=== PATIENT | male | born 1965 | race Caucasian/White ===

== ENCOUNTER 2018-04-14 05:21 | Emergency (ER) | payer SELFPAY ==
[~2018-04-14] VITALS: Ht 180.3 cm; Wt 95.3 kg
[2018-04-14 05:53] LABS: BASO % 0 % (0-3); EOS % 0 % (0-3); HEMATOCRIT 44.8 % (39.0-53.0); HEMOGLOBIN 14.6 g/dL (13.0-17.5); LYMPH # 1.2 x10^3/uL (1.0-4.8); LYMPH % 13 % (24-48); MEAN CORPUSCULAR HEMOGLOBIN 28 pg (25-35); MEAN CORPUSCULAR HGB CONC 33 g/dL (31-37); MEAN CORPUSCULAR VOLUME 87 fL (79-100); MONO # 0.5 x10^3/uL (0.0-1.1); MONO % 6 % (0-9); NEUT # 7.6 x10^3uL (1.8-7.7); NEUT % 81 % (31-73); PLATELET COUNT 314 x10^3/uL (140-400); RED BLOOD COUNT 5.13 x10^6/uL (4.30-5.70); RED CELL DISTRIBUTION WIDTH 14.3 % (11.5-14.5); WHITE BLOOD COUNT 9.4 x10^3/uL (4.0-11.0)
[2018-04-14] MEDS ORDERED: HYDROmorphone 2 MG/ML VIAL ONE (05:53)
--- NOTE | 2018-04-14 05:55 | PHYS DOC ---
Adult General Chief Complaint Chief Complaint: HEADACHE HPI HPI Patient is a 53-year-old male who presents with complaint of 2-3 day history of severe headache that he rates a 10 out of 10. Patient states that this is the worst headache of his life. He denies any history of migraines. He does indicate that he has a family history of migraines. He denies family history of aneurysms. He describes the pain as being throbbing in nature and complains of photophobia. He also was had nausea and vomiting. Patient states that pain is worsened with walking and change of position. (MING WU Jr. DO) Review of Systems Review of Systems Constitutional: Denies fever or chills [] Eyes: Denies change in visual acuity, redness, or eye pain [] Respiratory: Denies cough or shortness of breath [] Cardiovascular: No additional information not addressed in HPI [] GI: Denies abdominal pain. Complains of nausea and vomiting [] Neurologic: Complains of headache without focal weakness or sensory changes [] All other systems were reviewed and found to be within normal limits, except as documented in this note. (MING WU Jr. DO) Current Medications Current Medications Current Medications Medications (Trade) Dose Ordered Sig/Jana Start Time Stop Time Status Last Admin Dose Admin Diphenhydramine HCl (Benadryl) 25 mg 1X ONCE 04/14/18 06:00 04/14/18 06:01 DC 04/14/18 05:57 25 MG Hydromorphone HCl (Dilaudid) 2 mg STK-MED ONCE 04/14/18 05:53 04/14/18 05:54 DC Metoclopramide HCl (Reglan Vial) 10 mg 1X ONCE 04/14/18 06:00 04/14/18 06:01 DC 04/14/18 05:56 10 MG (KRISTEN LOVELL DO) Allergies Allergies Allergies Coded Allergies Type Severity Reaction Last Updated Verified No Known Drug Allergies 04/14/18 No (KRISTEN LOVELL DO) Physical Exam Physical Exam Constitutional: Well developed, well nourished, in mild distress. [] HENT: Normocephalic, atraumatic, bilateral external ears normal, oropharynx moist, no oral exudates, nose normal. [] Eyes: PERRLA, EOMI, conjunctiva normal, no discharge. [] Neck: Normal range of motion, no tenderness, supple. [] Cardiovascular: Regular rate and rhythm[] Lungs & Thorax: Bilateral breath sounds clear to auscultation [] Abdomen: Bowel sounds normal, soft, no tenderness. [] Skin: Warm, dry, no erythema, no rash. [] Extremities: No tenderness, no cyanosis, no clubbing, ROM intact. [] Neurologic: Alert and oriented X 3, no focal deficits noted. [] (MING WU Jr. DO) Current Patient Data Vital Signs Vital Signs Date Time Temp Pulse Resp B/P (MAP) Pulse Ox O2 Delivery O2 Flow Rate FiO2 04/14/18 05:55 18 100 Room Air 04/14/18 05:34 97.7 64 175/86 (115) 97.7 (KRISTEN LOVELL DO) Lab Values Laboratory Tests Test 04/14/18 05:43 White Blood Count 9.4 x10^3/uL (4.0-11.0) Red Blood Count 5.13 x10^6/uL (4.30-5.70) Hemoglobin 14.6 g/dL (13.0-17.5) Hematocrit 44.8 % (39.0-53.0) Mean Corpuscular Volume 87 fL (79-100) Mean Corpuscular Hemoglobin 28 pg (25-35) Mean Corpuscular Hemoglobin Concent 33 g/dL (31-37) Red Cell Distribution Width 14.3 % (11.5-14.5) Platelet Count 314 x10^3/uL (140-400) Neutrophils (%) (Auto) 81 % (31-73) H Lymphocytes (%) (Auto) 13 % (24-48) L Monocytes (%) (Auto) 6 % (0-9) Eosinophils (%) (Auto) 0 % (0-3) Basophils (%) (Auto) 0 % (0-3) Neutrophils # (Auto) 7.6 x10^3uL (1.8-7.7) Lymphocytes # (Auto) 1.2 x10^3/uL (1.0-4.8) Monocytes # (Auto) 0.5 x10^3/uL (0.0-1.1) Eosinophils # (Auto) 0.0 x10^3/uL (0.0-0.7) Basophils # (Auto) 0.0 x10^3/uL (0.0-0.2) Sodium Level 137 mmol/L (136-145) Potassium Level 3.5 mmol/L (3.5-5.1) Chloride Level 100 mmol/L (98-107) Carbon Dioxide Level 29 mmol/L (21-32) Anion Gap 8 (6-14) Blood Urea Nitrogen 18 mg/dL (8-26) Creatinine 0.9 mg/dL (0.7-1.3) Estimated GFR (Cockcroft-Gault) 88.6 BUN/Creatinine Ratio 20 (6-20) Glucose Level 209 mg/dL (70-99) H Calcium Level 9.1 mg/dL (8.5-10.1) Total Bilirubin 0.3 mg/dL (0.2-1.0) Aspartate Amino Transferase (AST) 6 U/L (15-37) L Alanine Aminotransferase (ALT) 36 U/L (16-63) Alkaline Phosphatase 97 U/L (46-116) Total Protein 7.6 g/dL (6.4-8.2) Albumin 3.1 g/dL (3.4-5.0) L Albumin/Globulin Ratio 0.7 (1.0-1.7) L Laboratory Tests 04/14/18 05:43 Laboratory Tests 04/14/18 05:43 (KRISTEN LOVELL DO) EKG EKG [] (MING WU Jr. DO) Radiology/Procedures Radiology/Procedures [] (MING WU Jr. DO) Impressions: EXAM: CT Head without IV contrast CLINICAL HISTORY: SEVERE NAVARRETE X 3 DAYS NO PREV COMPARISON: None. TECHNIQUE: Routine CT of the head without contrast. Soft tissues and bone windows were reviewed. PQRS compliance statement - One or more of the following individualized dose reduction techniques were utilized for this study: 1. Automated exposure control 2. Adjustment of the mA and/or kV according to patient size 3. Use of iterative reconstruction technique FINDINGS: There is no evidence of hemorrhage, mass or extra-axial fluid collection. Grimaldo-white differentiation is maintained with no evidence of edema. There is no mass effect or shift of the intracranial structures. The ventricles, basilar cisterns and cortical sulci are normal in size and configuration for the patients stated age. The cerebellum and brainstem are unremarkable. The calvarium demonstrates no evidence of fracture or focal lesion. There is normal aeration of the visualized paranasal sinuses and mastoid air cells. The visualized portions of the orbits are normal. IMPRESSION: 1. No evidence for acute cardiopulmonary process. (KRISTEN LOVELL DO) Course & Med Decision Making Course & Med Decision Making Pertinent Labs and Imaging studies reviewed. (See chart for details) Patient moved to room upon arrival was evaluated by your medical staff after which an IV was established and blood work obtained. A CT of the head without contrast has been ordered. At this time patient's workup is pending and patient is being signed out to the oncoming ER physician at 6:00 AM. (MING WU Jr., DO) Course & Med Decision Making ED course: Evaluation reveals a 53-year-old male with a migraine headache. He was treated with migraine medicines during his stay in the department which did completely alleviate his symptoms. CT scan of his head was negative. I discussed findings of the CT with the patient and family. I will provide him with some medication to take as an outpatient. But at this time I feel he is safe for discharge home. (KRISTEN LOVELL DO) Dragon Disclaimer Dragon Disclaimer This electronic medical record was generated, in whole or in part, using a voice recognition dictation system. (MING WU Jr., DO) Departure Departure Impression: Primary Impression: Migraine headache Disposition: 01 HOME, SELF-CARE Condition: IMPROVED Referrals: NO PCP (PCP) Patient Instructions: Migraine Headache Additional Instructions: Return to the emergency department with any new or concerning symptoms Scripts Metoclopramide Hcl (REGLAN) 10 Mg Tablet 1 TAB PO Q8HRS PRN for migraine, #30 TAB Prov: KRISTEN LOVELL DO 04/14/18 Problem Qualifiers Primary Impression: Migraine headache Migraine type: without aura Status migrainosus presence: without status migrainosus Intractability: not intractable Qualified Codes: G43.009 - Migraine without aura, not intractable, without status migrainosus MING WU Jr., DO Apr 14, 2018 05:55 KRISTEN LOVELL DO Apr 14, 2018 07:12
[2018-04-14] MEDS ORDERED: diphenhydrAMINE 50 MG/ML VIAL IVP ONE (06:00)
[2018-04-14] MEDS ORDERED: HYDROmorphone 2 MG/ML VIAL IV ONE (06:00)
[2018-04-14] MEDS ORDERED: METOCLOPRAMIDE HCL 10 MG/2 ML VIAL. IV ONE (06:00)
[2018-04-14 06:22] LABS: CALCIUM 9.1 mg/dL (8.5-10.1); CREATININE 0.9 mg/dL (0.7-1.3); GFR 88.6; POTASSIUM 3.5 mmol/L (3.5-5.1)
[2018-04-14 06:27] LABS: ALBUMIN 3.1 g/dL (3.4-5.0); ALBUMIN/GLOBULIN RATIO 0.7 (1.0-1.7); TOTAL BILIRUBIN 0.3 mg/dL (0.2-1.0); TOTAL PROTEIN 7.6 g/dL (6.4-8.2)
--- NOTE | 2018-04-14 06:42 | RAD ---
EXAM: CT Head without IV contrast CLINICAL HISTORY: SEVERE NAVARRETE X 3 DAYS NO PREV COMPARISON: None. TECHNIQUE: Routine CT of the head without contrast. Soft tissues and bone windows were reviewed. PQRS compliance statement - One or more of the following individualized dose reduction techniques were utilized for this study: 1. Automated exposure control 2. Adjustment of the mA and/or kV according to patient size 3. Use of iterative reconstruction technique FINDINGS: There is no evidence of hemorrhage, mass or extra-axial fluid collection. Grimaldo-white differentiation is maintained with no evidence of edema. There is no mass effect or shift of the intracranial structures. The ventricles, basilar cisterns and cortical sulci are normal in size and configuration for the patients stated age. The cerebellum and brainstem are unremarkable. The calvarium demonstrates no evidence of fracture or focal lesion. There is normal aeration of the visualized paranasal sinuses and mastoid air cells. The visualized portions of the orbits are normal. IMPRESSION: 1. No evidence for acute cardiopulmonary process. Electronically signed by: Eber Willoughby MD (04/14/2018 6:39 AM) [facility]
[2018-04-14] MEDS ORDERED: METO10TA81 PO (07:12)
[2018-04-14 07:15] VITALS: BP 159/87
== END 2018-04-14 07:46 | disposition home or self-care (01) ==
LOC: ER 05:21
DX: G43.009 Migraine without aura, not intractable, without status migrainosus (principal)
CPT/HCPCS: 36415; 70450; 80053; 85025; 96374; 96375; 99284; J1170; J1200; J2765